=== PATIENT | male | born 2000 | race Caucasian/White ===

== ENCOUNTER 2022-04-05 13:14 | Emergency (ER) | payer SELFPAY ==
[2022-04-05] MEDS ORDERED: Sodium Chloride 0.9% 1,000 ML IV ONE (13:36)
[2022-04-05] MEDS ORDERED: Famotidine 20 MG/2 ML SDV IVPUSH ONE (13:36)
[2022-04-05 14:10] LABS: CORONAVIRUS COVID-19 NAA NEGATIVE (NEGATIVE); INFLUENZA A NAA NEGATIVE (NEGATIVE); INFLUENZA B NAA NEGATIVE (NEGATIVE); RESPIRATORY SYNCYTIAL VIR NAA NEGATIVE (NEGATIVE)
[2022-04-05 14:29] LABS: CARBON DIOXIDE,CO2 31.1 mmol/L (21.0-32.0); POTASSIUM,K 3.8 mmol/L (3.5-5.1)
== END 2022-04-05 15:55 | disposition home or self-care (01) ==
LOC: MW.ED 13:14
DX: K29.70 Gastritis, unspecified, without bleeding (principal); Z91.048 Other nonmedicinal substance allergy status; Z86.16 Personal history of COVID-19; Z20.822 Contact with and (suspected) exposure to COVID-19
CPT/HCPCS: 0241U; 36415; 71045; 80053; 81003; 83690; 85025; 86308; 87651; 96361; 96374; 99284; J3490; J7030